=== PATIENT | female | born 1995 | race American Indian/Alaskan Native ===

== ENCOUNTER 2017-08-24 03:50 | Emergency (ER) | payer MEDICAID ==
[2017-08-24 04:02] VITALS: BP 116/79
[2017-08-24] MEDS ORDERED: MOTRIN ONE (05:58)
[2017-08-24] MEDS ORDERED: MOTRIN PO ONE (06:11)
[2017-08-24 06:46] LABS: Hematocrit 44.7 % (30.3-42.9); Hemoglobin 15.1 gm/dl (10.1-14.3); Mean Corpuscular HGB Conc 34 % (30-34); Mean Corpuscular Hemoglobin 31 pg (28-32); Mean Corpuscular Volume 92 fl (79-97); Platelet Count 198 K/mm3 (140-440); Red Blood Count 4.88 M/mm3 (3.65-5.03); Red Cell Distribution Width 13.1 % (13.2-15.2)
[2017-08-24 06:56] LABS: BUN/Creatinine Ratio 13; Blood Urea Nitrogen 9 mg/dL (7-17); Calcium 10.2 mg/dL (8.4-10.2); Hemolysis Index 5
--- NOTE | 2017-08-24 07:17 | Ultrasound Report ---
FINAL REPORT PROCEDURE: US BREAST RT COMPLETE TECHNIQUE: Real-time sonography in multiple planes of the RIGHT breast, including all four quadrants and the retroareolar regions, was performed with image documentation. HISTORY: Very swollen and tender right breast COMPARISON: No prior studies are available for comparison. FINDINGS: RIGHT breast: There is diffuse edematous swelling of the right breast suggesting mastitis. There is no discrete mass or abscess. There are dilated terminal ducts near the areola. IMPRESSION: Soft tissue edema suggesting mastitis. There is no mass or abscess.
[2017-08-24 10:08] LABS: Basophils % (Manual) 0 % (0.0-1.8); Total Cells Counted 100
[2017-08-24 10:09] LABS: Anisocytosis 1+; Platelet Estimate Consistent w Auto
== END 2017-08-24 10:05 | disposition left against medical advice (07) ==
LOC: ED 03:50
DX: N64.4 Mastodynia (principal); Z53.21 Procedure and treatment not carried out due to patient leaving prior to being seen by health care provider
CPT/HCPCS: 36415; 80048; 84703; 85007; 85025